=== PATIENT | male | born 1965 | race Caucasian/White ===

== ENCOUNTER 2024-10-07 17:48 | Emergency (ER) | payer OTHER ==
[~2024-10-07] VITALS: Ht 177.8 cm; Wt 120.2 kg
[2024-10-07] MEDS ORDERED: MethylPREDNISolone Sod Succ 125 MG Vial IV ONE (18:05)
[2024-10-07] MEDS ORDERED: DiphenhydrAMINE HCl 50 MG/ML 1ML Vial IV ONE (18:05)
[2024-10-07] MEDS ORDERED: EPIPEN0.3 MG/0.1 IM (20:44)
== END 2024-10-07 20:51 | disposition home or self-care (01) ==
LOC: ER 17:48
DX: T78.40XA Allergy, unspecified, initial encounter (principal); E11.9 Type 2 diabetes mellitus without complications; Z91.014 Allergy to mammalian meats; Z88.6 Allergy status to analgesic agent; Z91.011 Allergy to milk products; Z91.018 Allergy to other foods
CPT/HCPCS: 96374; 96375; 99284-25; J1200; J2919